=== PATIENT | male | born 1975 | race Hispanic/Latino ===

== ENCOUNTER 2016-10-07 03:59 | Inpatient (IN) | payer OTHER ==
[2016-10-07] MEDS ORDERED: Sodium Chloride 0.9% 1,000 ML IV STA (04:45)
--- NOTE | 2016-10-07 04:46 | ED PDOC ---
HPI: Male Pain Time Seen by Provider: 10/07/16 04:11 Chief Complaint (Nursing): Male Genitourinary Chief Complaint (Provider): Flank pain History Per: Patient Additional Complaint(s): Pt is a 41 yo male, PMH of kidney stones requiring lithotripsy, presents to ED with complaints of left flank pain radiating to left testicle x1 hour. Pt denies any problems urinating. As per pt, he woke up with the pain. Pt took Advil at 0330. Past Medical History Reviewed: Nursing Documentation, Vital Signs Vital Signs: Last Vital Signs Temp 98 F 10/07/16 04:14 Pulse 52 L 10/07/16 04:14 Resp 18 10/07/16 04:14 BP 150/99 H 10/07/16 04:14 Pulse Ox 99 10/07/16 04:14 - Medical History Other PMH: Kidney stones - Surgical History Other surgeries: lithotripsy - Family History Family History: States: Unknown Family Hx - Living Arrangements Living Arrangements: With Family - Social History Current smoker - smoking cessation education provided: No Ex-Smoker (has not smoked in the last 12 months): No Alcohol: Social Drugs: Denies - Allergies Allergies/Adverse Reactions: Allergies Allergy/AdvReac Type Severity Reaction Status Date / Time No Known Allergies Allergy Verified 10/07/16 04:16 Review of Systems ROS Statement: Except As Marked, All Systems Reviewed And Found Negative Musculoskeletal: Positive for: Back Pain Physical Exam - Reviewed Nursing Documentation Reviewed: Yes Vital Signs Reviewed: Yes - Physical Exam Appears: Positive for: Non-toxic, No Acute Distress, Uncomfortable Head Exam: Positive for: ATRAUMATIC, NORMAL INSPECTION, NORMOCEPHALIC Skin: Positive for: Normal Color, Warm, DRY Eye Exam: Positive for: EOMI, Normal appearance, PERRL ENT: Positive for: Normal ENT Inspection Neck: Positive for: Normal, Painless ROM Cardiovascular/Chest: Positive for: Regular Rate, Rhythm Respiratory: Positive for: CNT, Normal Breath Sounds Gastrointestinal/Abdominal: Positive for: Normal Exam, Bowel Sounds, Soft Back: Positive for: L CVA Tenderness Extremity: Positive for: Normal ROM Neurologic/Psych: Positive for: Alert, Oriented - ECG O2 Sat by Pulse Oximetry: 99 Medical Decision Making Medical Decision Making: IV access established and treatment initiated with IVF, Zofran, Toradol and Morphine Diagnostics ordered case endorsed to ED MD, Dr. Camacho, pending diagnostic review and re-eval Disposition - Clinical Impression Clinical Impression: Renal colic - Patient ED Disposition Is Patient to be Admitted: No - Disposition Disposition: Transfer of Care (dr. camacho) Disposition Time: 05:35 Condition: STABLE - POA Present On Arrival: None
[2016-10-07 05:39] LABS: BASO # 0.1 K/uL (0.0-0.2); BASO % 0.9 % (0.0-2.0); EOS # 0.3 K/uL (0.0-0.7); EOS % 3.5 % (0.0-4.0); HEMOGLOBIN 15.3 g/dL (12.0-18.0); LYMPH # 3.3 K/uL (1.0-4.3); LYMPH % 34.3 % (20.0-40.0); MEAN CELL VOLUME 85.1 fl (80.0-94.0); MEAN CORPUSCULAR HEMOGLOBIN 28.9 pg (27.0-31.0); MEAN PLATELET VOLUME 7.7 fl (7.2-11.7); MONO % 10.5 % (0.0-10.0); NEUT % 50.8 % (50.0-75.0); NRBC % 0.1 % (0.0-0.0); RBC 5.31 Mil/uL (4.40-5.90); RED CELL DISTRIBUTION WIDTH 13.3 % (11.5-14.5); WHITE BLOOD COUNT 9.8 K/uL (4.8-10.8)
[2016-10-07 05:48] LABS: ALB/GLOB RATIO 1.4 (1.0-2.1); ALBUMIN 4.5 g/dL (3.5-5.0); ALT/SGPT 53 U/L (21-72); AST/SGOT 27 U/L (17-59); BLOOD UREA NITROGEN 17 mg/dl (9-20); GFR AFRICAN-AMERICAN > 60; GFR NON-AFRICAN AMERICAN > 60
--- NOTE | 2016-10-07 06:05 | ED PDOC ---
- Laboratory Results Result Diagrams: 10/07/16 05:32 10/07/16 05:32 - ECG O2 Sat by Pulse Oximetry: 99 (RA) Pulse Ox Interpretation: Normal Medical Decision Making Medical Decision Making: Time: 0600 Initial impression: Renal colic Initial plan: --Patient signed out to me by Jenn Franklin PA-C. Pending Urology consult and evaluation 0620: Consulted with Dr. Escobar, PT to be admitted to medicine Dr. Moraes instruction assistant principal and he will see pt for possible surgery pt made aware Scribe Attestation: Documented by Salud Hernandez, acting as a scribe for Renetta Healy MD. Scribe Attestation: All medical record entries made by the Scribe were at my direction and personally dictated by me. I have reviewed the chart and agree that the record accurately reflects my personal performance of the history, physical exam, medical decision making, and the department course for this patient. I have also personally directed, reviewed, and agree with the discharge instructions and disposition. Disposition Discussed With Dr.: Nam Escobar Comment: Will consult with Doctor Will See Patient In The: Hospital - Clinical Impression Clinical Impression: Renal colic - POA Present On Arrival: None - Disposition Disposition: Admitted as In-Patient Disposition Time: 06:20 Condition: STABLE
--- NOTE | 2016-10-07 09:52 | CT ---
PROCEDURE: CT abdomen pelvis dated 10/07/2016 HISTORY: Rule out renal stone COMPARISON: None. TECHNIQUE: Contiguous axial images of the abdomen and pelvis. Oral contrast was administered. No IV contrast given. Coronal and Sagittal reformats generated. Radiation dose: Total exam DLP = 748.68 mGy-cm. This CT exam was performed using one or more of the following dose reduction techniques: Automated exposure control, adjustment of the mA and/or kV according to patient size, and/or use of iterative reconstruction technique. FINDINGS: LOWER THORAX: Lung bases are free of focal consolidation effusion or basilar pneumothorax. There is a small hiatal hernia. Heart size is within range of normal. No pericardial effusion. LIVER: Liver exhibits normal size measuring approximately 15.4 cm in CC dimension. . No obvious hepatic mass collection or calcification. GALLBLADDER AND BILE DUCTS: The gallbladder is physiologically distended. No evidence of intraluminal gallbladder calculi. . PANCREAS: Unremarkable. No mass. No ductal dilatation. SPLEEN: Unremarkable. No splenomegaly. ADRENALS: No adrenal lesions. KIDNEYS AND URETERS: Kidneys exhibit relatively symmetric size. . There is an obstructing proximal left ureteral calculus that measures approximately 6 mm with mild -moderate left-sided hydronephrosis. Infiltration/induration surrounding the on ureter most pronounced the level of the calculus with some infiltration changes in the left perinephric fat. Nonobstructing 8.5 mm calculus seen in the upper/midpole left kidney There are 3 right-sided renal calculi 1 in the mid and another in the lower pole and another in the upper/midpole measuring approximately 5.4 mm and 6 mm and 3.7 mm respectively. BLADDER: Urinary bladder is incompletely distended which may account for slight thick-walled appearance. Muscular hypertrophy may contribute. Possibility of a cystitis not excluded. REPRODUCTIVE: Unremarkable. APPENDIX: Appendix is unremarkable without evidence of surrounding inflammatory changes. BOWEL: Evaluation of the bowel is limited due to the lack of oral contrast material. Stomach is incompletely distended which may account for slight thick-walled appearance. Gastritis not excluded. Visualized loops of small bowel exhibit normal contour and caliber. No evidence of acute mechanical small bowel obstruction. Most of the colon is collapsed which may account for slight thick-walled appearance however concomitant submucosal fat deposition possibly due to chronic inflammation or mild of wall edema to mild colitis be considered. Clinical correlation recommended. PERITONEUM: Unremarkable. No fluid collection. No free air. Small fat containing bilateral inguinal hernias present. . Small fat containing umbilical hernia. LYMPH NODES: Unremarkable. No enlarged lymph nodes. VASCULATURE: Unremarkable. No aortic aneurysm. BONES: No fracture or destructive lesion. OTHER FINDINGS: None. IMPRESSION: Nephrolithiasis with obstructing 6 mm calculus proximal left ureter with mild to moderate left-sided hydronephrosis. There is mild submucosal fat deposition and/or wall edema involving good portion of the colon possibly secondary to chronic inflammation however possibility of a mild colitis to be considered. See above discussion for additional findings and details.
[2016-10-07] MEDS ORDERED: Sodium Chloride 0.9% 1,000 ML IV SCH (14:00)
[2016-10-07] MEDS ORDERED: cefTRIAXone (Rocephin) 1 gm Inj ONE (14:47)
[2016-10-07] MEDS ORDERED: Iohexol 300 100 ML IJ ONE (14:48)
[2016-10-07] MEDS ORDERED: Propofol 10 mg/ml Inj (20 ML) ONE (14:52)
[2016-10-07] MEDS ORDERED: cefTRIAXone (Rocephin) 1 gm Inj IVPB ONE (15:20)
[2016-10-07] MEDS ORDERED: Sevoflurane - Inhalation Anesthetic Liq (250 ml) ONE (15:26)
[2016-10-07] MEDS ORDERED: Lactated Ringer's 1,000 ML IV ONE (15:36)
[2016-10-07] MEDS ORDERED: HYDROmorphone 0.5 mg/0.5 ml ISec ONE (16:45)
[2016-10-07] MEDS ORDERED: HYDROmorphone 0.5 mg/0.5 ml ISec IVP PRN (17:15)
[2016-10-07 17:48] LABS: PROTHROMBIN TIME 11.5 Seconds (9.8-13.1)
--- NOTE | 2016-10-07 23:13 | CP.PCM.HP ---
History of Present Illness - History of Present Illness History of Present Illness: A 41 yr old male with hx of nephrolithiass 5 yrs ago was admitted for renal colic ,now came with c\o testicular pain on left side with abdominal pain lower , sharp ,colicky 10\10 from last night ,did not get better with OTC meds, no relief . notes he wasn't drinking lot of fluids, he does not know what kind of stones he had in past he is worried about diet,pros and cons of repititive events also asking if sx can be done in am as his mom is going to be here this pm Present on Admission - Present on Admission Any Indicators Present on Admission: No Review of Systems - Constitutional Constitutional: absent: Anorexia, Chills, Fever, Frequent Falls, Weight Loss - EENT Eyes: Photophobia. absent: Other Visual Disturbances Nose/Mouth/Throat: Sore Throat. absent: Nasal Congestion, Post Nasal Drip - Cardiovascular Cardiovascular: absent: Chest Pain, Dyspnea, Leg Edema, Rapid Heart Rate - Respiratory Respiratory: absent: Cough, Wheezing, Chest Congestion, Excessive Mucous Production - Gastrointestinal Gastrointestinal: absent: Diarrhea, Dyspepsia, Heartburn, Odynophagia, Vomiting - Genitourinary Genitourinary: absent: Difficulty Urinating, Hematuria, Nocturia, Urinary Urgency, Freq UTI - Musculoskeletal Musculoskeletal: absent: Arthralgias, Limited Range of Motion, Myalgias - Integumentary Integumentary: absent: Acne, Lesions, Sores - Neurological Neurological: absent: Abnormal Gait, Convulsions, Headaches, Syncope, Weakness - Psychiatric Psychiatric: absent: Anxiety, Difficulty Concentrating - Endocrine Endocrine: absent: Fatigue - Hematologic/Lymphatic Hematologic: absent: Lymphadenopathy Past Patient History - Past Medical History & Family History Past Medical History?: Yes - Past Social History Smoking Status: Never Smoked - CARDIAC Hx Cardiac Disorders: No Hx Angina: No Hx Atrial Fibrillation: No Hx Cardia Arrhythmia: No Hx Circulatory Problems: No Hx Congestive Heart Failure: No Hx Heart Attack: No Hx Heart Murmur: No Hx Heart Transplant: No Hx Hypercholesterolemia: No Hx Hypertension: No Hx Hypotension: No Hx Internal Defibrillator: No Hx Mitral Valve Prolapse: No Hx Pacemaker: No Hx Peripheral Edema: No Hx Peripheral Vascular Disease: No - PULMONARY Hx Respiratory Disorders: Yes Hx Asthma: Yes Hx Bronchitis: No Hx Chronic Obstructive Pulmonary Disease (COPD): No Hx Emphysema: No Hx Lung Cancer: No Hx Pneumonia: No Hx Pulmonary Edema: No Hx Pulmonary Embolism: No Hx Respiratory Aspiration: No Hx Respiratory Tract Infection: No Hx Sleep Apnea: No Hx Tuberculosis: No - NEUROLOGICAL Hx Neurological Disorder: No Hx Alzheimer's Disease: No HX Cerebrovascular Accident: No Hx Dementia: No Hx Dizziness: No Hx Meningitis: No Hx Migraine: No Hx Multiple Sclerosis: No Hx Paralysis: No Hx Parkinson's Disease: No Hx Seizures: No Hx Syncope: No Hx Transient Ischemic Attacks (TIA): No Hx Vertigo: No - HEENT Hx HEENT Problems: No Hx Blind: No Hx Cataracts: No Hx Deafness: No Hx Difficulty Chewing: No Hx Epistaxis: No Hx Glaucoma: No Hx Macular Degeneration: No Hx Sinusitis: No - RENAL Hx Chronic Kidney Disease: Yes Hx Dialysis: No Hx Kidney Stones: Yes Hx Neurogenic Bladder: No Hx Pyelonephritis: No Hx Renal (Kidney) Cancer: No Hx Renal Failure: No - ENDOCRINE/METABOLIC Hx Endocrine Disorders: No Hx Adrenal Cancer: No Hx Diabetes Insipidus: No Hx Diabetes Mellitus Type 1: No Hx Diabetes Mellitus Type 2: No Hx Hyperthyroidism: No Hx Hypothyroidism: No Hx Systemic Lupus Erythematosus: No - HEMATOLOGICAL/ONCOLOGICAL Hx Blood Disorders: No Hx AIDS: No Hx Anemia: No Hx Blood Transfusions: No Hx Blood Transfusion Reaction: No Hx Bruising: No Hx Cancer: No Hx Chemotherapy: No Hx Cirrhosis: No Hx Gum Bleeding: No Hx Hemophilia: No Hx Hepatitis A: No Hx Hepatitis B: No Hx Hepatitis C: No Hx Human Immunodeficiency Virus (HIV): No Hx Leukemia: No Hx Metastesis: No Hx Shingles: No Hx Sickle Cell Disease: No Hx Unexplained Bleeding: No Hx von Willebrand's Disease: No - INTEGUMENTARY Hx Dermatological Problems: No Hx Basil Cell: No Hx Garrison: No Hx Cellulitis: No Hx Eczema: No Hx Melanoma: No Hx Psoriasis: No Hx Squamous Cell: No - MUSCULOSKELETAL/RHEUMATOLOGICAL Hx Musculoskeletal Disorders: No Hx Arthritis: No Hx Back Pain: No Hx Degenerative Joint Disease: No Hx Falls: No Hx Fractures: No Hx Gout: No Hx Herniated Disk: No Hx Myasthenia Gravis: No Hx Osteoarthritis: No Hx Osteomyelitis: No Hx Osteoporosis: No Hx Rhabdomyolysis: No Hx Rheumatoid Arthritis: No Hx Spinal Stenosis: No Hx Unsteady Gait: No - GASTROINTESTINAL Hx Gastrointestinal Disorders: No Hx Bowel Surgery: No Hx Clostridium Difficile: No Hx Colitis: No Hx Colostomy: No Hx Constipation: No Hx Crohn's Disease: No Hx Diarrhea: No Hx Diverticulitis: No Hx Esophageal Varices: No Hx Fatty Liver Disease: No Hx Gall Bladder Disease: No Hx Gastritis: No Hx Gastroesophageal Reflux: No Hx Hemorrhoids: No Hx Ileostomy: No Hx Irritable Bowel: No Hx Liver Failure: No Hx Nausea: No Hx Pancreatitis: No HX Swallowing Problems: No Hx Ulcer: No Hx Vomiting: No - GENITOURINARY/GYNECOLOGICAL Hx Genitourinary Disorders: No Hx Bladder Cancer: No Hx Bladder Stone: No Hx Hematuria: No Hx Incontinence: No Hx Prostate Cancer: No Hx Prostate Problems: No Hx Reproductive Disorders: No Hx Sexually Transmitted Disorders: No Hx Urinary Tract Infection: No - PSYCHIATRIC Hx Psychophysiologic Disorder: No Hx Anxiety: No Hx Bipolar Disorder: No Hx Depression: No Hx Emotional Abuse: No Hx Hallucinations: No Hx Panic Symptoms: No Hx Paranoia: No Hx Post Traumatic Stress Disorder: No Hx Psychosis: No Hx Physical Abuse: No Hx Schizophrenia: No Hx Sexual Abuse: No Hx Substance Use: No - SURGICAL HISTORY Hx Surgeries: No Hx Abdominal Aortic Aneurysm Repair: No Hx Amputation: No Hx Angiogram: No Hx Angioplasty: No Hx Appendectomy: No Hx Arteriovenous Shunt: No Hx Arthroscopy: No Hx Bile Duct Stent: No Hx Breast Biopsy: No Hx Cataract Extraction: No Hx Cardiac Catheterization: No Hx Carotid Endarterectomy: No Hx Section: No Hx Cholecystectomy: No Hx Coronary Artery Bypass Graft: No Hx Coronary Stent: No Hx Dilation and Curettage: No Hx Eye Surgery: No Hx Femoral-Popliteal Bypass Graft: No Hx Gastric Bypass Surgery: No Hx Herniorrhaphy: No Hx Hysterectomy: No Hx Joint Replacement: No Hx Kidney Transplant: No Hx Liver Transplant: No Hx Mastectomy: No Hx Musculoskeletal Surgery: No Hx Open Heart Surgery: No Hx Open Reduction Internal Fixation: No Hx Orthopedic Surgery: No Hx Parathyroidectomy: No Hx Penile Implant: No Hx Pulmonary Surgery: No Hx Splenectomy: No Hx Thyroidectomy: No Hx Tonsillectomy: No Hx Tubal Ligation: No Hx Valve Replacement: No Hx Vascular Surgery: No Hx Vascular Access Device: No - ANESTHESIA Hx Anesthesia: No Hx Anesthesia Reactions: No Hx Malignant Hyperthermia: No Has any member of the family had a problem w/ anesthesia?: No Meds Allergies/Adverse Reactions: Allergies Allergy/AdvReac Type Severity Reaction Status Date / Time No Known Allergies Allergy Verified 10/07/16 04:16 Physical Exam - Constitutional Appears: No Acute Distress - Head Exam Head Exam: NORMAL INSPECTION - Eye Exam Eye Exam: EOMI, PERRL. absent: Scleral icterus Pupil Exam: PERRL - ENT Exam ENT Exam: Mucous Membranes Moist, Normal Exam - Neck Exam Neck exam: Positive for: Normal Inspection. Negative for: Lymphadenopathy, Tenderness - Respiratory Exam Respiratory Exam: Clear to Auscultation Bilateral, NORMAL BREATHING PATTERN. absent: Rales, Rhonchi, Wheezes - Cardiovascular Exam Cardiovascular Exam: REGULAR RHYTHM, +S1, +S2. absent: Systolic Murmur - GI/Abdominal Exam GI & Abdominal Exam: Normal Bowel Sounds, Soft. absent: Tenderness - Extremities Exam Extremities exam: Positive for: normal inspection, pedal pulses present. Negative for: pedal edema - Back Exam Back exam: absent: CVA tenderness (L), CVA tenderness (R), tenderness - Neurological Exam Neurological exam: Alert, Oriented x3 - Psychiatric Exam Psychiatric exam: Normal Affect, Normal Mood - Skin Skin Exam: Intact, Warm Results - Vital Signs Recent Vital Signs: Last Vital Signs Temp 98.5 F 10/07/16 19:30 Pulse 60 10/07/16 19:30 Resp 20 10/07/16 19:30 BP 130/77 10/07/16 19:30 Pulse Ox 97 10/07/16 19:30 - Labs Result Diagrams: 10/07/16 05:32 10/07/16 05:32 Labs: Laboratory Results - last 24 hr 10/07/16 17:00 PT 11.5 INR 1.0 - Imaging and Cardiology CT scan - abdomen Status: Report reviewed by me Assessment & Plan (1) Nephrolithiasis Status: Acute Comment: NPO. IVF. FOR LITHOTRIPSY. cleared pateint to sx. discuss and answered all qusetions in detail (2) Renal colic Status: Acute Comment: iv morphine. pain free for now. ivf (3) Hypokalemia Status: Acute Comment: replace k Decision To Admit - Pt Status Changed To: Hospital Disposition Of: Inpatient - Admit Certification Admit to Inpatient:: After my assessment, the patient will require hospitalization for at least two midnights. This is because of the severity of symptoms shown, intensity of services needed, and/or the medical risk in this patient being treated as an outpatient. - . Bed Request Type: Med/Surg Admitting Physician: Tristan Moraes
[2016-10-08 00:55] VITALS: BP 123/75; PULSE 58; RESP 19; TEMP 97.7
[2016-10-08 06:16] VITALS: O2SAT 99
--- NOTE | 2016-10-08 16:03 | RAD ---
PROCEDURE: Intraoperative Fluoroscopy. HISTORY: Fluoroscopy FINDINGS: Fluoroscopic assistance was provided for stent placement. Please fluoroscopic time (continuous mode) utilized during the procedure: 0.4 seconds.
--- NOTE | 2016-10-26 16:42 | CP.PCM.DIS ---
Provider - Provider Date of Admission: 10/07/16 06:18 Attending physician: Tristan Moraes MD Time Spent in preparation of Discharge (in minutes): 10 Diagnosis - Discharge Diagnosis (1) Nephrolithiasis Status: Acute (2) Renal colic Status: Acute (3) Hypokalemia Status: Acute Hospital Course - Lab Results Lab Results: Most Recent Lab Values WBC 9.8 K/uL (4.8-10.8) 10/07/16 05:32 RBC 5.31 Mil/uL (4.40-5.90) 10/07/16 05:32 Hgb 15.3 g/dL (12.0-18.0) 10/07/16 05:32 Hct 45.1 % (35.0-51.0) 10/07/16 05:32 MCV 85.1 fl (80.0-94.0) 10/07/16 05:32 MCH 28.9 pg (27.0-31.0) 10/07/16 05:32 MCHC 34.0 g/dL (33.0-37.0) 10/07/16 05:32 RDW 13.3 % (11.5-14.5) 10/07/16 05:32 Plt Count 261 K/uL (130-400) 10/07/16 05:32 MPV 7.7 fl (7.2-11.7) 10/07/16 05:32 Neut % (Auto) 50.8 % (50.0-75.0) 10/07/16 05:32 Lymph % (Auto) 34.3 % (20.0-40.0) 10/07/16 05:32 Eagle % (Auto) 10.5 % (0.0-10.0) H 10/07/16 05:32 Eos % (Auto) 3.5 % (0.0-4.0) 10/07/16 05:32 Baso % (Auto) 0.9 % (0.0-2.0) 10/07/16 05:32 Neut # 5.0 K/uL (1.8-7.0) 10/07/16 05:32 Lymph # 3.3 K/uL (1.0-4.3) 10/07/16 05:32 Eagle # 1.0 K/uL (0.0-0.8) H 10/07/16 05:32 Eos # 0.3 K/uL (0.0-0.7) 10/07/16 05:32 Baso # 0.1 K/uL (0.0-0.2) 10/07/16 05:32 PT 11.5 Seconds (9.8-13.1) 10/07/16 17:00 INR 1.0 (0.9-1.2) 10/07/16 17:00 Sodium 141 mmol/l (132-148) 10/07/16 05:32 Potassium 3.4 MMOL/L (3.6-5.0) L 10/07/16 05:32 Chloride 106 mmol/L (98-107) 10/07/16 05:32 Carbon Dioxide 22 mmol/L (22-30) 10/07/16 05:32 Anion Gap 16 (10-20) 10/07/16 05:32 BUN 17 mg/dl (9-20) 10/07/16 05:32 Creatinine 1.3 mg/dL (0.8-1.5) 10/07/16 05:32 Est GFR ( Amer) > 60 10/07/16 05:32 Est GFR (Non-Af Amer) > 60 10/07/16 05:32 Random Glucose 106 mg/dL (75-110) 10/07/16 05:32 Calcium 10.0 mg/dL (8.4-10.2) 10/07/16 05:32 Total Bilirubin 0.6 mg/dl (0.2-1.3) 10/07/16 05:32 AST 27 U/L (17-59) 10/07/16 05:32 ALT 53 U/L (21-72) 10/07/16 05:32 Alkaline Phosphatase 77 U/L (38-126) 10/07/16 05:32 Total Protein 7.8 G/DL (6.3-8.2) 10/07/16 05:32 Albumin 4.5 g/dL (3.5-5.0) 10/07/16 05:32 Globulin 3.3 gm/dL (2.2-3.9) 10/07/16 05:32 Albumin/Globulin Ratio 1.4 (1.0-2.1) 10/07/16 05:32 - Hospital Course Hospital Course: s\p ESWL urology cleared pt home and he is willing to go to [facility] Discharge Exam - Head Exam Head Exam: NORMAL INSPECTION Discharge Plan - Follow Up Plan Condition: STABLE Disposition: HOME/ ROUTINE Instructions: Cystoscopy (DC), Ureteral Stent Placement (DC) Additional Instructions: to be at [facility] at 9 am and follow up with dr moraes (call for appt) [phone] [facility] Referrals: Nam Escobar MD [Medical Doctor] -
--- NOTE | 2016-11-25 08:40 | OP ---
PROCEDURE DATE: 10/07/2016 PREOPERATIVE DIAGNOSIS: Left renal colic secondary to multiple left renal calculi and ureteral calculus. PROCEDURE PERFORMED: Cystoscopy, left ureteroscopy, laser lithotripsy of a left ureteral calculus, and insertion of a double-J stent. DESCRIPTION OF PROCEDURE: The patient was placed in the operating room table in a dorsal lithotomy position. The area of the groin was draped and prepped in sterile manner. Using a short urethroscope and floppy tip guidewire, I advanced the urethroscope to the level of the obstructing stone in the mid ureter on the left side. By x-ray, it was noted to be 6 mm in size. I then was able to under direct vision to perform laser lithotripsy of that stone following the successful breaking and removal of those stones with a basket. I then proceeded to look to the level of renal pelvis. There was a larger stone at that level. At this time, then a sensor wire was in place and in placed a 6-Wolof multi-length double-J stent over that sensor wire. The second stone within the renal pelvis will be handled by extracorporeal shock wave lithotripsy and that appointment will be made at a future day. For this procedure then, the instrumentation was removed and the patient then was taken from the operation room in good condition. Nam Escobar MD
== END 2016-10-07 23:50 | disposition home or self-care (01) | DRG 669 ==
LOC: H.ER 03:59 → H.ERHOLD 06:18 → H.MEDSURG1 08:24
PROVIDERS: ADMIT Internal Medicine; ATTEND Internal Medicine
PROC: 0TC78ZZ Extirpation of Matter from Left Ureter, Via Natural or Artificial Opening Endoscopic (ICD-10-PCS; principal; 2016-10-07 15:30)
PROC: 0T778DZ Dilation of Left Ureter with Intraluminal Device, Via Natural or Artificial Opening Endoscopic (ICD-10-PCS; 2016-10-07 15:30)
DX: N13.2 Hydronephrosis with renal and ureteral calculous obstruction (principal); E87.6 Hypokalemia; N50.812 Left testicular pain; Z87.442 Personal history of urinary calculi

== ENCOUNTER 2016-11-14 10:01 | Day surgery (SDC) | payer OTHER ==
[2016-11-14 10:31] VITALS: BMI 26.4
[2016-11-14] MEDS ORDERED: cefTRIAXone (Rocephin) 1 gm Inj ONE (11:26)
[2016-11-14] MEDS ORDERED: Iohexol 240 200 ML IJ ONE (11:26)
[2016-11-14] MEDS ORDERED: Liquid Adhesive TOP ONE (11:26)
[2016-11-14] MEDS ORDERED: Lactated Ringer's 1,000 ML IV ONE (11:31)
[2016-11-14] MEDS ORDERED: Propofol 10 mg/ml Inj (20 ML) ONE ×2 (12:33→13:00)
[2016-11-14] MEDS ORDERED: Dexamethasone 4 mg/1 ml ONE (12:34)
[2016-11-14] MEDS ORDERED: Lidocaine 2% Jelly (Uro-Jet) ONE (13:01)
[2016-11-14] MEDS ORDERED: HYDROmorphone 0.5 mg/0.5 ml ISec IVP PRN (13:23)
[2016-11-14] MEDS ORDERED: Lactated Ringer's 1,000 ML IV SCH (13:23)
[2016-11-14 14:19] VITALS: RESP 18
--- NOTE | 2016-11-14 15:01 | OP ---
PROCEDURE DATE: 11/14/2016 PREOPERATIVE DIAGNOSIS: Post left lithotripsy for renal calculus. POSTOPERATIVE DIAGNOSIS: Post left lithotripsy for renal calculus. PROCEDURE: Cystoscopy with removal of the double-J stent under IV sedation. DESCRIPTION OF PROCEDURE: The patient was placed in the operating room table in dorsal lithotomy position. The groin was draped and prepped in sterile manner. Using a #21 cystoscope, I entered into the bladder atraumatically and identified the existing J-stent. Using the grasping forceps, I engaged it, removed it, and both ends were intact. The stent was sent for analysis and the patient was taken from the operating room in good condition. Nam Escobar MD
[2016-11-14 15:27] VITALS: BP 138/75; PULSE 59; TEMP 98.2; O2SAT 98
== END 2016-11-14 16:19 | disposition home or self-care (01) ==
LOC: H.OPSURG 10:01
PROVIDERS: ATTEND Urology
DX: N23 Unspecified renal colic (principal)

== ENCOUNTER 2017-08-05 08:47 | Emergency (ER) | payer OTHER ==
[2017-08-05 08:48] VITALS: BMI 26.4
[2017-08-05 08:54] VITALS: BP 133/82; PULSE 67; RESP 16; TEMP 98.9; O2SAT 100
--- NOTE | 2017-08-05 11:18 | ED PDOC ---
Lower Extremity Pain/Injury Time Seen by Provider: 08/05/17 09:00 Chief Complaint (Nursing): Lower Extremity Problem/Injury Chief Complaint (Provider): Left foot pain History Per: Patient History/Exam Limitations: no limitations Onset/Duration Of Symptoms: Days (x1), Worse Since (onset) Current Symptoms Are (Timing): Still Present Additional Complaint(s): Danny Jason is a 42 year old male, with no significant past medical history, who presents to the emergency department complaining of progressively worst left foot pain onset since yesterday. Patient states pain is localized to the dorsum of foot, great toe and on the left side under the great toe. He denies any trauma, fever, chills, or hx of gout. No further medical complaints. PMD: None provided. Past Medical History Reviewed: Historical Data, Nursing Documentation, Vital Signs Vital Signs: Last Vital Signs Temp 98.9 F 08/05/17 08:52 Pulse 67 08/05/17 08:52 Resp 16 08/05/17 08:52 BP 133/82 08/05/17 08:52 Pulse Ox 100 08/05/17 08:52 - Medical History PMH: Asthma, Kidney Stones, Chronic Kidney Disease Denies: Alzheimer's Disease, Anemia, Anxiety, Arthritis, Atrial Fibrillation , Bipolar Disorder, Bronchitis, CAD, Cardia Arrhythmia, CHF, COPD, Crohn's Disease, Dementia, Depression, Diverticulitis, Emphysema, Fractures, Gastritis, Gall Bladder Disease, HIV, HTN, Hypercholesterolemia, Hyperthyroidism, Hypothyroidism, Migraine, Mitral Valve Prolapse, Multiple Sclerosis, Osteoporosis, Pancreatitis, Paranoia, Parkinson's Disease, Peripheral Edema, Pneumonia, Post Traumatic Stress Disorder, Pulmonary Embolism, Rheumatoid Arthritis, Schizophrenia, Seizures, Sickle Cell Disease, Sexually Transmitted Disease, Sleep Apnea, TIA - Surgical History Surgical History: Denies: Appendectomy, CABG, Carotid Endarterectomy, Cholecystectomy, Coronary Stent, Pacemaker, Tonsillectomy - Family History Family History: States: Unknown Family Hx - Social History Current smoker - smoking cessation education provided: No Alcohol: None Drugs: Denies - Home Medications Home Medications: Ambulatory Orders Medication Instructions Recorded Cephalexin [cephalexin] 500 mg PO QID #28 cap 08/05/17 - Allergies Allergies/Adverse Reactions: Allergies Allergy/AdvReac Type Severity Reaction Status Date / Time No Known Allergies Allergy Verified 10/07/16 04:16 Review of Systems ROS Statement: Except As Marked, All Systems Reviewed And Found Negative Constitutional: Negative for: Fever, Chills Musculoskeletal: Positive for: Foot Pain (left) Physical Exam - Reviewed Nursing Documentation Reviewed: Yes Vital Signs Reviewed: Yes - Physical Exam Appears: Positive for: Non-toxic, No Acute Distress Head Exam: Positive for: ATRAUMATIC, NORMOCEPHALIC Skin: Positive for: Normal Color, Warm, Dry Eye Exam: Positive for: Normal appearance Neck: Positive for: Painless ROM, Supple Respiratory: Negative for: Respiratory Distress Extremity: Positive for: Normal ROM (Left foot full ROM), Tenderness (Left great toe swollen and tender over the dorsum of the foot. Neurovascularly intact.), Swelling (Left foot slightly swollen, no erythema. 2+ DP). Negative for: Deformity Neurologic/Psych: Positive for: Alert, Oriented. Negative for: Motor/Sensory Deficits - ECG O2 Sat by Pulse Oximetry: 100 (RA) Pulse Ox Interpretation: Normal Medical Decision Making Medical Decision Making: Initial Impression: Foot pain r/o fracture and gout Initial Plan: --Uric acid --Motrin tab 600 mg PO --Ankle left 3 views [RAD] --Foot left 3 views [RAD] --Reevaluation -No family hx of gout but will order uric acid in case of first presentation. -Explained to patient xray will only take a look at bones and if negative and he still has pain he will need an outpatient MRI to further evaluate cartilage if they're negative. 11:32 -Uric acid normal. Xrays were read by me and show no acute findings. Will refer patient to podiatry clinic. shira bandage offered on reval prior to dc noted slight erythema developed over dorsum of foot so will treat with keflex. 11:35 Upon provider evaluation patient is medically stable, and requires no further treatment in the ED at this time. Patient will be discharged home with Rx for cephalexin. Counseling was provided and all questions were answered regarding diagnosis and need for follow up with podiatry clinic. There is agreement to discharge plan. Return if symptoms persist or worsen. Scribe Attestation: Documented by Angel Lopez, acting as a scribe for Renetta Healy MD Provider Scribe Attestation: All medical record entries made by the Scribe were at my direction and personally dictated by me. I have reviewed the chart and agree that the record accurately reflects my personal performance of the history, physical exam, medical decision making, and the department course for this patient. I have also personally directed, reviewed, and agree with the discharge instructions and disposition. Disposition - Clinical Impression Clinical Impression: Foot pain - Patient ED Disposition Is Patient to be Admitted: No Counseled Patient/Family Regarding: Studies Performed, Diagnosis, Need For Followup - Disposition Referrals: Podiatry Clinic [Outside] Nito Davila MD [Staff Provider] - Disposition: Routine/Home Disposition Time: 11:05 Condition: IMPROVED Additional Instructions: follow up with podiatry within 2 days take motrin for pain return to the ED with any worsening or concerning symptoms Prescriptions: Cephalexin [cephalexin] 500 mg PO QID #28 cap Instructions: Foot Sprain (DC) Forms: [employer] ([place])
--- NOTE | 2017-08-05 12:04 | RAD ---
PROCEDURE: Left Foot Radiographs. HISTORY: Foot pain COMPARISON: Correlation made with concurrent radiographs of the left ankle. FINDINGS: BONES: No evidence of acute displaced fracture nor dislocation. The osseous structures appear intact. No obvious cortical destructive changes. JOINTS: Normal. SOFT TISSUES: There is a tiny rounded/elliptical shaped corticated density within the medial soft tissues adjacent to the distal aspect proximal phalanx 1st toe that may represent some old posttraumatic mineralization. No evidence OTHER FINDINGS: None. IMPRESSION: No evidence of acute displaced fracture nor dislocation.
--- NOTE | 2017-08-05 12:06 | RAD ---
PROCEDURE: Left left ankle dated 08/05/2017 HISTORY: Foot pain. COMPARISON: Eliana relation made with concurrent radiographs of the left foot FINDINGS: BONES: No evidence of acute displaced fracture nor dislocation. The osseous structures appear intact. There is a small round/elliptical shaped corticated density within the soft tissues Um overlying the medial ankle mortise that probably represent some all posttraumatic mineralization. There is also tiny osteophyte seen arising from the inferior medial tip of the medial malleolus. JOINTS: Normal. No osteoarthritis. Ankle mortise maintained. Talar dome intact SOFT TISSUES: No significant soft tissue swelling OTHER FINDINGS: None. IMPRESSION: No evidence of acute displaced fracture nor dislocation. .
== END 2017-08-05 11:56 | disposition home or self-care (01) ==
LOC: H.ER 08:47
DX: M79.672 Pain in left foot (principal)